=== PATIENT | male | born 1940 | race Caucasian/White ===

== ENCOUNTER 2016-12-15 03:43 | Emergency (ER) | payer MEDICARE, OTHER ==
[~2016-12-15 03:43] MED LIST: DETR4CAP PO; FINA5TAB2 PO; TAMS0.4C4 PO; TEMA15CA PO
== END 2016-12-15 07:15 | disposition left against medical advice (07) ==
LOC: PHED 03:43
DX: Z53.9 Procedure and treatment not carried out, unspecified reason (principal)
CPT/HCPCS: 99281

== ENCOUNTER 2017-01-26 10:35 | Inpatient (IN) | payer MEDICARE, OTHER ==
[2017-01-26] VITALS (8 sets, daily range): BP systolic 94–149; BP diastolic 53–70; PULSE 54–122; RESP 15–23; TEMP 97.8–98.7; O2SAT 93–98
--- NOTE | 2017-01-26 10:58 | PD ---
HPI Chief Complaint: Cardiac Complaint Time Seen by Provider: 10:51 Travel History International Travel<30 days: No Contact w/Intl Traveler<30days: No Traveled to known affect area: No History of Present Illness HPI [place] C/O PALPITATIONS ONGOING SINCE WHEN HE PASSED OUT. NOW OVER LAST 2 DAYS, HE HAS HAD PALPITATIONS, INTERMITTENTLY ONGOING BUT NOT RESOLVING OVER PAST COUPLE DAYS, DENIES CP/SMITH/ABDPAIN/ DENIES BLEEDING/FEVER AT THIS TIME...NO ALLEVIATING FACTOR....AGGRAVATED BY EXERCISE. ON NO ANTICOAGULANTS CHART AND RN NOTES REVIEWED PCP: CHELSEA PMHX: HYPERLIPIDEMIA, BPH, LYMPHOMA...ALSO H/O ANEURYSM BRAIN BLEED S/P CLIPPING PSHX: HERNIA REPAIR KRISTOPHER, MELANOMA REMOVAL FROM CHEST, KNEE REPLACED KRISTOPHER PFSH Past Medical History Cancer: Yes (SKIN) Cardiovascular Problems: No Diabetes: No Endocrine: No Genitourinary: Yes (BPH) Hepatitis: No Hiatal Hernia: No Immune Disorder: No Musculoskeletal: No Neurologic: Yes (CEREBRAL BLEEED) Psychiatric: No Respiratory: No Immunizations Current: Yes Thyroid Disease: No Past Surgical History Eye Surgery: Yes (CATARCT SX BILAT) Genitourinary Surgery: Yes (BILAT HERNIA REPAIR) Joint Replacement: Yes (RIGHT KNEE) Oral Surgery: Yes (TONSILLECTOMY) Social History Tobacco Use: Yes Substance Use: No Allergies-Medications (Allergen,Severity, Reaction): Coded Allergies: *MDRO Multi-Drug Resistant Organism (Verified Adverse Reaction, Unknown, ) 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 Review of Systems Except as stated in HPI: all other systems reviewed are Neg General / Constitutional: No: Fever Eyes: No: Visual changes HENT: No: Headaches Cardiovascular: Positive: Palpitations Respiratory: No: Shortness of Breath Gastrointestinal: No: Abdominal Pain Genitourinary: No: Dysuria Musculoskeletal: No: Pain Skin: No Rash Neurologic: No: Weakness Psychiatric: No: Depression Endocrine: No: Polydipsia Hematologic/Lymphatic: No: Easy Bruising Physical Exam Narrative GENERAL: SKIN: Warm and dry. HEAD: Atraumatic. Normocephalic. EYES: Pupils equal and round. No scleral icterus. No injection or drainage. ENT: No nasal bleeding or discharge. Mucous membranes pink and moist. NECK: Trachea midline. No JVD. CARDIOVASCULAR: IRREGULARLY IRREGULAR RHYTHM, TACHY RATE RESPIRATORY: No accessory muscle use. Clear to auscultation. Breath sounds equal bilaterally. GASTROINTESTINAL: Abdomen soft, non-tender, nondistended. MUSCULOSKELETAL: Extremities without clubbing, cyanosis, or edema. No obvious deformities. NEUROLOGICAL: Awake and alert. No obvious cranial nerve deficits. Motor grossly within normal limits. Five out of 5 muscle strength in the arms and legs. Normal speech. PSYCHIATRIC: Appropriate mood and affect; insight and judgment normal. Data Data Last Documented VS Vital Signs Date Time Temp Pulse Resp B/P (MAP) Pulse Ox O2 Delivery O2 Flow Rate FiO2 01/26/17 13:16 85 18 108/65 (79) 96 Room Air 01/26/17 10:38 98.4 Orders Orders Electrocardiogram (01/26/17 10:51) B-Type Natriuretic Peptide (01/26/17 10:51) Ckmb (Isoenzyme) Profile (01/26/17 10:51) Complete Blood Count With Diff (01/26/17 10:51) Comprehensive Metabolic Panel (01/26/17 10:51) Prothrombin Time / Inr (Pt) (01/26/17 10:51) Act Partial Throm Time (Ptt) (01/26/17 10:51) Troponin I (01/26/17 10:51) Chest, Single Ap (01/26/17 10:51) Ecg Monitoring (01/26/17 10:51) Bilateral Bp Monitoring (01/26/17 10:51) Iv Access Insert/Monitor (01/26/17 10:51) Oximetry (01/26/17 10:51) Oxygen Administration (01/26/17 10:51) Sodium Chloride 0.9% Flush (Ns Flush) (01/26/17 11:00) Diltiazem Inj (Cardizem Inj) (01/26/17 11:30) Electrocardiogram (01/26/17 11:38) Sodium Chlor 0.9% 1000 Ml Inj (Ns 1000 M (01/26/17 12:30) Diltiazem Inj (Cardizem Inj) (01/26/17 13:15) Admit Order (Ed Use Only) (01/26/17 14:22) Preparation Center Coordinator / Telemetry [id number] (01/26/17 14:22) Diet Heart Healthy (01/26/17 Dinner) Activity Bed Rest (01/26/17 14:22) Notify Dr: Other (01/26/17 14:22) Labs Laboratory Tests Test 01/26/17 11:10 White Blood Count 4.7 TH/MM3 Red Blood Count 4.44 MIL/MM3 Hemoglobin 15.2 GM/DL Hematocrit 44.4 % Mean Corpuscular Volume 100.0 FL Mean Corpuscular Hemoglobin 34.3 PG Mean Corpuscular Hemoglobin Concent 34.3 % Red Cell Distribution Width 13.1 % Platelet Count 132 TH/MM3 Mean Platelet Volume 7.5 FL Neutrophils (%) (Auto) 51.9 % Lymphocytes (%) (Auto) 31.9 % Monocytes (%) (Auto) 13.9 % Eosinophils (%) (Auto) 1.5 % Basophils (%) (Auto) 0.8 % Neutrophils # (Auto) 2.4 TH/MM3 Lymphocytes # (Auto) 1.5 TH/MM3 Monocytes # (Auto) 0.7 TH/MM3 Eosinophils # (Auto) 0.1 TH/MM3 Basophils # (Auto) 0.0 TH/MM3 CBC Comment DIFF FINAL Differential Comment Prothrombin Time 10.5 SEC Prothromb Time International Ratio 1.0 RATIO Activated Partial Thromboplast Time 23.1 SEC Blood Urea Nitrogen 22 MG/DL Creatinine 0.85 MG/DL Random Glucose 110 MG/DL Total Protein 6.9 GM/DL Albumin 3.7 GM/DL Calcium Level 8.7 MG/DL Alkaline Phosphatase 70 U/L Aspartate Amino Transf (AST/SGOT) 20 U/L Alanine Aminotransferase (ALT/SGPT) 23 U/L Total Bilirubin 0.5 MG/DL Sodium Level 142 MEQ/L Potassium Level 4.2 MEQ/L Chloride Level 108 MEQ/L Carbon Dioxide Level 26.4 MEQ/L Anion Gap 8 MEQ/L Estimat Glomerular Filtration Rate 88 ML/MIN Total Creatine Kinase 88 U/L Troponin I LESS THAN 0.02 NG/ML B-Type Natriuretic Peptide 86 PG/ML MDM Medical Decision Making Medical Screen Exam Complete: Yes Emergency Medical Condition: Yes Medical Record Reviewed: Yes Interpretation(s) AFLUTTER/AFIB, MILDLY TACHY,. RBBB, Differential Diagnosis PALPITATIONS V ANEMIA V PULM EDEMA V PNA V WV V NONSTEMI Narrative Course PATIENT FIRST SET OF TROPONIN NEGATIVE, HOWEVER, PATIENT BECAME SLIGHTLY HYPOTENSIVE SBP IN 90'S AND RESPONDED WELL TO IVF CHALLENGE, BY INCREASING SBP AND DECREASING RATE...HOWEVER, RATE WAS NOW STILL IN AFIB. NOT ANTICOAGULATED AND MAKING THIS DECISION MORE DIFFICULT IS THE FACT THAT PATIENT HAD BRAIN BLEED FROM BRAIN ANEURYSM A FEW YEARS AGO. Diagnosis Primary Impression: New onset a-fib Admitting Information Admitting Physician Requests: Observation Scripts Apixaban (Eliquis) 5 Mg Tab 5 MG PO BID for Blood Clot Prevention, #60 TAB 3 Refills Prov: Qamar Heart DO 01/27/17 Metoprolol Tartrate (Metoprolol Tartrate) 25 Mg Tab 12.5 MG PO Q12HR for Afib, #60 TAB 5 Refills Prov: Qamar Heart DO 01/27/17 William Esquivel MD Jan 26, 2017 10:58
[2017-01-26] MEDS ORDERED: SODIUM CHLORIDE 0.9% FLUSH 10 ML FLUSH IVF PRN (11:00)
[2017-01-26] MEDS ORDERED: DILTIAZEM HCL 25 MG/5 ML VIAL IV ONE ×2 (11:30→13:15)
[2017-01-26 11:45] LABS: AUTOMATED NEUTROPHIL # 2.4 TH/MM3 (1.8-7.7); BASOPHIL % 0.8 % (0.0-2.0); EOSINOPHIL # 0.1 TH/MM3 (0-0.4); EOSINOPHIL % 1.5 % (0.0-4.0); HEMATOCRIT 44.4 % (39.0-51.0); HEMO FLAGS DIFF FINAL; LYMPH % 31.9 % (9.0-44.0); LYMPHOCYTE # 1.5 TH/MM3 (1.0-4.8); MEAN CORPUSCULAR HEMOGLOBIN 34.3 PG (27.0-34.0); MEAN CORPUSCULAR HGB CONC 34.3 % (32.0-36.0); MONO % 13.9 % (0.0-8.0); NEUT % 51.9 % (16.0-70.0); PLATELET COUNT 132 TH/MM3 (150-450); RED BLOOD COUNT 4.44 MIL/MM3 (4.50-5.90); RED CELL DISTRIBUTION WIDTH 13.1 % (11.6-17.2); WHITE BLOOD COUNT 4.7 TH/MM3 (4.0-11.0)
[2017-01-26 11:55] LABS: APTT (PATIENT) 23.1 SEC (24.3-30.1); PROTHROMBIN TIME - PATIENT 10.5 SEC (9.8-11.6)
--- NOTE | 2017-01-26 12:05 | RADRPT ---
EXAM DATE/TIME: 01/26/2017 11:28 [facility] COMPARISON: No previous studies available for comparison. INDICATIONS : Irregular heartbeat MEDICAL HISTORY : lymphoma, benign prostatic hypertrophy SURGICAL HISTORY : hernia repair ENCOUNTER: Initial ACUITY: 1 day PAIN SCORE: 0/10 LOCATION: Bilateral chest FINDINGS: Koiier-x-Ausf catheter tip at the cavoatrial junction. There is a patchy areas of opacity at the lef t lung base without obscuration of the left hemidiaphragm. The right lung is clear. No evidence of pneumothorax. The heart is upper limits normal size. CONCLUSION: Mild patchy infiltrates at the left lung base. Marc Delcid MD on January 26, 2017 at 12:03 Board Certified Radiologist. This report was verified electronically.
[2017-01-26 12:15] LABS: ALT (GPT) 23 U/L (12-78)
[2017-01-26 12:17] LABS: ANION GAP 8 MEQ/L (5-15); AST (GOT) 20 U/L (15-37); BICARBONATE 26.4 MEQ/L (21.0-32.0); BLOOD UREA NITROGEN 22 MG/DL (7-18); CHLORIDE 108 MEQ/L (98-107); GLOMERULAR FILTRATION RATE 88 ML/MIN (>89); SODIUM (NA) 142 MEQ/L (136-145)
[2017-01-26 12:18] LABS: POTASSIUM 4.2 MEQ/L (3.5-5.1)
[2017-01-26 12:19] LABS: ALKALINE PHOSPHATASE 70 U/L (45-117); CREATINE KINASE 88 U/L (39-308); TOTAL BILIRUBIN ADULT 0.5 MG/DL (0.2-1.0)
[2017-01-26] MEDS ORDERED: SODIUM CHLOR 0.9% 1000 ML INJ 1,000 ML IV ONE (12:30)
[2017-01-26] MEDS ORDERED: SODIUM CHLORIDE 0.9% FLUSH 10 ML FLUSH IV FLUSH PRN (14:30)
[2017-01-26] MEDS ORDERED: LACTULOSE SYRUP 20 GM/30 ML CUP PO PRN (14:30)
[2017-01-26] MEDS ORDERED: ACETAMINOPHEN 325 MG TAB PO PRN (14:30)
[2017-01-26] MEDS ORDERED: MAGNESIUM HYDROXIDE SUSP 30 ML CUP PO PRN (14:30)
[2017-01-26] MEDS ORDERED: SENNOSIDES 8.6 MG TAB PO PRN (14:30)
[2017-01-26] MEDS ORDERED: ONDANSETRON HCL 4 MG/2 ML VIAL IVP PRN (14:30)
[2017-01-26] MEDS ORDERED: BISACODYL 10 MG SUPP RECTAL PRN (14:30)
[2017-01-26] MEDS ORDERED: NALOXONE HCL 0.4 MG/ML AMP IV PUSH PRN (14:30)
[2017-01-26] MEDS ORDERED: IBRU1CAP PO (14:51)
--- NOTE | 2017-01-26 17:29 | HHI.HP ---
HPI Service [facility] Primary Care Physician Marc Sykes MD Admission Diagnosis NEW ONSET AFIB Diagnoses: Chief Complaint: Palpitations. Travel History International Travel<30 Days: No Contact w/Intl Traveler <30 Da: No Traveled to Known Affected Are: No History of Present Illness Mr. Vega is a pleasant 76-year-old with a history of Non-Hodgkin's lymphoma, melanoma who presents to the emergency department due to palpitations. Around labor day of this year, patient was outside and felt dizzy , lightheaded but was able to come home. Since that day, he has experienced palpitations. However, no chest pain, shortness of breath. No further near syncope, dizziness, lightheadedness. He knew his heart rhythm is irregular. Today, [facility] who advised patient to report to the hospital due to Afib with RVR. He was given diltiazem 5mg and 10mg IV. At the time of this interview, patient denies any chest pain, shortness of breath. No changes in bowel or bladder habits. He is sitting in his chair. Review of Systems Except as stated in HPI: all other systems reviewed are Neg Past Family Social History Past Medical History Melanoma, BPH, cerebral bleed, Non-Hodgkin's lymphoma. Past Surgical History Bilateral cataract surgery, bilateral hernia repair, two knee replacement, tonsillectomy Reported Medications Tamsulosin (Tamsulosin HCl) 0.4 Mg Cap 0.4 Mg PO HS Detrol LA (Tolterodine Tartrate) 4 Mg Cap 4 Mg PO DAILY Temazepam 15 Mg Cap 15 Mg PO HS PRN Finasteride 5 Mg Tab 5 Mg PO DAILY Do not crush. 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 Mother - Alzheimer's. Social History Does not use tobacco, alcohol or illicit drugs. Physical Exam Vital Signs Vital Signs Date Time Temp Pulse Resp B/P (MAP) Pulse Ox O2 Delivery O2 Flow Rate FiO2 01/26/17 14:45 96 19 125/61 (82) 96 Room Air 01/26/17 13:16 85 18 108/65 (79) 96 Room Air 01/26/17 11:44 122 23 94/53 (67) 96 Room Air 01/26/17 11:00 115 01/26/17 10:38 98.4 88 15 149/69 (95) 95 Physical Exam GENERAL: This is a well-nourished, well-developed patient, in no apparent distress. SKIN: No rashes, ecchymoses or lesions. Warm and dry. HEAD: Atraumatic. Normocephalic. No temporal or scalp tenderness. EYES: Pupils equal round and reactive. No injection or drainage. ENT: Nose without bleeding, purulent drainage or septal hematoma. Airway patent. NECK: Trachea midline. No lymphadenopathy. Supple, nontender, no meningeal signs. CARDIOVASCULAR: Irregularly irregular without murmurs, gallops, or rubs. No JVD. RESPIRATORY: Clear to auscultation. Breath sounds equal bilaterally. No wheezes , rales, or rhonchi. GASTROINTESTINAL: Abdomen soft, non-tender, nondistended. No guarding. MUSCULOSKELETAL: Extremities without clubbing, cyanosis, or edema. NEUROLOGICAL: Awake and alert. Cranial nerves II through XII intact. No focal neurological deficits. Normal speech. Laboratory Laboratory Tests Test 01/26/17 11:10 White Blood Count 4.7 Red Blood Count 4.44 Hemoglobin 15.2 Hematocrit 44.4 Mean Corpuscular Volume 100.0 Mean Corpuscular Hemoglobin 34.3 Mean Corpuscular Hemoglobin Concent 34.3 Red Cell Distribution Width 13.1 Platelet Count 132 Mean Platelet Volume 7.5 Neutrophils (%) (Auto) 51.9 Lymphocytes (%) (Auto) 31.9 Monocytes (%) (Auto) 13.9 Eosinophils (%) (Auto) 1.5 Basophils (%) (Auto) 0.8 Neutrophils # (Auto) 2.4 Lymphocytes # (Auto) 1.5 Monocytes # (Auto) 0.7 Eosinophils # (Auto) 0.1 Basophils # (Auto) 0.0 CBC Comment DIFF FINAL Differential Comment Prothrombin Time 10.5 Prothromb Time International Ratio 1.0 Activated Partial Thromboplast Time 23.1 Blood Urea Nitrogen 22 Creatinine 0.85 Random Glucose 110 Total Protein 6.9 Albumin 3.7 Calcium Level 8.7 Alkaline Phosphatase 70 Aspartate Amino Transf (AST/SGOT) 20 Alanine Aminotransferase (ALT/SGPT) 23 Total Bilirubin 0.5 Sodium Level 142 Potassium Level 4.2 Chloride Level 108 Carbon Dioxide Level 26.4 Anion Gap 8 Estimat Glomerular Filtration Rate 88 Total Creatine Kinase 88 Troponin I LESS THAN 0.02 B-Type Natriuretic Peptide 86 Result Diagram: 01/26/17 1110 01/26/17 1110 Imaging Last Impressions Chest X-Ray 01/26/17 1051 Signed Impressions: Service Date/Time: Thursday, January 26, 2017 11:28 - CONCLUSION: Mild patchy infiltrates at the left lung base. MD Trae Mcneal VTE Risk Assessment Caprini VTE Risk Assessment: Mod/High Risk (score >= 2) Caprini Risk Assessment Model Point Value = 1 Point Value = 2 Point Value = 3 Point Value = 5 Age 41-60 Minor surgery BMI > 25 kg/m2 Swollen legs Varicose veins or History of unexplained or recurrent spontaneous Oral contraceptives or hormone replacement Sepsis (< 1 month) Serious lung disease, including pneumonia (< 1 month) Abnormal pulmonary function Acute myocardial infarction Congestive heart failure (< 1 month) History of inflammatory bowel disease Medical patient at bed rest Age 61-74 Arthroscopic surgery Major open surgery (> 45 min) Laparoscopic surgery (> 45 min) Malignancy Confined to bed (> 72 hours) Immobilizing plaster cast Central venous access Age >= 75 History of VTE Family history of VTE Factor V Leiden Prothrombin [id number] Lupus anticoagulant Anticardiolipin antibodies Elevated serum homocysteine Heparin-induced thrombocytopenia Other congenital or acquired thrombophilia Stroke (< 1 month) Elective arthroplasty Hip, pelvis, or leg fracture Acute spinal cord injury (< 1 month) Prophylaxis Regimen Total Risk Factor Score Risk Level Prophylaxis Regimen 0-1 Low Early ambulation 2 Moderate Order ONE of the following: *Sequential Compression Device (SCD) *Heparin 5000 units SQ BID 3-4 Higher Order ONE of the following medications: *Heparin 5000 units SQ TID *Enoxaparin/Lovenox 40 mg SQ daily (WT < 150 kg, CrCl > 30 mL/min) *Enoxaparin/Lovenox 30 mg SQ daily (WT < 150 kg, CrCl > 10-29 mL/min) *Enoxaparin/Lovenox 30 mg SQ BID (WT < 150 kg, CrCl > 30 mL/min) AND/OR *Sequential Compression Device (SCD) 5 or more Highest Order ONE of the following medications: *Heparin 5000 units SQ TID (Preferred with Epidurals) *Enoxaparin/Lovenox 40 mg SQ daily (WT < 150 kg, CrCl > 30 mL/min) *Enoxaparin/Lovenox 30 mg SQ daily (WT < 150 kg, CrCl > 10-29 mL/min) *Enoxaparin/Lovenox 30 mg SQ BID (WT < 150 kg, CrCl > 30 mL/min) AND *Sequential Compression Device (SCD) Assessment and Plan Problem List: (1) Atrial fibrillation with RVR ICD Code: I48.91 - Unspecified atrial fibrillation (2) Hyperlipidemia ICD Code: E78.5 - Hyperlipidemia Status: Chronic (3) Hx of non-Hodgkin's lymphoma ICD Code: Z85.72 - Personal history of non-Hodgkin lymphomas Assessment and Plan Mr. Vega is a pleasant 76 year old who presents to the ED after his PCP advised him to come to the hospital due to Afib with RVR. Patient has been experiencing irregular heart beat since 2016. However, he has not been evaluated by any provider and thus has been on any medication for rate control or anti-coagulation. - Atrial fibrillation with RVR - [id number] score 2 (age > 74). - Will start patient on Metoprolol 50mg BID. May consider reducing dose if heart rate drops too much. - If beta carolyn is not effective, will consider CCB. - His Afib has been present at least since . No current need for cardioversion. - Will start patient on Apixaban 5mg BID for anti-coagulation. - We discussed at length about treatment approach, rate control, anti- coagulation. - Patient is advised to see a keno dealer in the outpatient setting. - Despite rate control, if he remains symptomatic, he may benefit from cardioversion/ablation in future. - History of Non-hodgkin's lymphoma - Patient is on Ibrutinib. Oncologist is Dr. Micheal Vázquez. - Resume Ibrutinib upon discharge. Full code. Apixaban. Discharge plan: If rate is well controlled, patient can go home on 01/27/2017 and follow up with cardiology in the outpatient setting. Qamar Heart DO Jan 26, 2017 17:29
[2017-01-26] MEDS ORDERED: METOPROLOL TARTRATE 50 MG TAB PO ONE (19:30)
[2017-01-26] MEDS: SODIUM CHLORIDE 0.9% FLUSH 10 ML FLUSH IV FLUSH SCH (21:00)
--- NOTE | 2017-01-26 22:07 | EKG ---
Date Performed: 01/26/2017 Time Performed: 13:29:29 PTAGE: 76 years EKG: ATRIAL FIBRILLATION RIGHT BUNDLE BRANCH BLOCK LEFT POSTERIOR FASCICULAR BLOCK ABNORMAL ECG NO PREVIOUS TRACING DOCTOR: Matthieu Lucero Interpretating Date/Time 01/26/2017 22:05:31
[2017-01-26] MEDS: APIXABAN 5 MG TABLET PO SCH (22:35)
[2017-01-26] MEDS ORDERED: TEMAZEPAM 7.5 MG CAP PO ONE (23:45)
[2017-01-26] MEDS ORDERED: TEMAZEPAM 15 MG CAP PO PRN (23:45)
[2017-01-27 03:55] VITALS: BP 98/53; PULSE 56; RESP 18; TEMP 98.6; O2SAT 93
[2017-01-27 07:24] VITALS: BP 97/53; PULSE 54; RESP 16; TEMP 97.9; O2SAT 95
[2017-01-27 08:00] VITALS: PULSE 51; PULSE 57
--- NOTE | 2017-01-27 08:05 | EKG ---
Date Performed: 01/26/2017 Time Performed: 11:02:36 PTAGE: 76 years EKG: ATRIAL FIBRILLATION WITH RAPID VENTRICULAR RESPONSE MARKED RIGHT AXIS DEVIATION RIGHT BUNDL E BRANCH BLOCK ABNORMAL ECG Compared to PREVIOUS TRACING , atrial fibrillation with RVR is new. PREVIOUS TRACIN06/01/2013 16.5 3 DOCTOR: Rob Quinonez Interpretating Date/Time 01/27/2017 08:03:47
--- NOTE | 2017-01-27 08:07 | EKG ---
Date Performed: 01/26/2017 Time Performed: 11:38:21 PTAGE: 76 years EKG: ATRIAL FIBRILLATION WITH RAPID VENTRICULAR RESPONSE BORDERLINE RIGHT AXIS DEVIATION INTRAVE NTRICULAR CONDUCTION DELAY ST ELEVATION, CONSIDER INFERIOR INJURY ACUTE VT NO PREVIOUS TRACING DOCTOR: Rob Quinonez Interpretating Date/Time 01/27/2017 08:05:34
[2017-01-27 08:08] VITALS: O2SAT 97
[2017-01-27 08:21] LABS: AUTOMATED NEUTROPHIL # 2.3 TH/MM3 (1.8-7.7); BASOPHIL % 0.8 % (0.0-2.0); EOSINOPHIL # 0.1 TH/MM3 (0-0.4); EOSINOPHIL % 1.7 % (0.0-4.0); HEMATOCRIT 41.9 % (39.0-51.0); HEMO FLAGS DIFF FINAL; LYMPH % 37.6 % (9.0-44.0); LYMPHOCYTE # 1.9 TH/MM3 (1.0-4.8); MEAN CELL VOLUME 100.6 FL (80.0-100.0); MEAN CORPUSCULAR HEMOGLOBIN 34.6 PG (27.0-34.0); MEAN CORPUSCULAR HGB CONC 34.4 % (32.0-36.0); MONO % 13.8 % (0.0-8.0); NEUT % 46.1 % (16.0-70.0); PLATELET COUNT 129 TH/MM3 (150-450); RED BLOOD COUNT 4.17 MIL/MM3 (4.50-5.90); RED CELL DISTRIBUTION WIDTH 13.1 % (11.6-17.2); WHITE BLOOD COUNT 5.1 TH/MM3 (4.0-11.0)
[2017-01-27 08:54] LABS: BICARBONATE 29.1 MEQ/L (21.0-32.0)
[2017-01-27] MEDS ORDERED: METOPROLOL TARTRATE 50 MG TAB PO SCH ×2 (09:00)
[2017-01-27] MEDS: SODIUM CHLORIDE 0.9% FLUSH 10 ML FLUSH IV FLUSH SCH (09:00)
[2017-01-27] MEDS ORDERED: METOPROLOL TARTRATE 25 MG TAB PO SCH (09:00)
[2017-01-27] MEDS ORDERED: FINASTERIDE 5 MG TAB PO SCH (09:00)
[2017-01-27] MEDS ORDERED: PILL SPLITTER OTHER PRN (09:15)
[2017-01-27] MEDS: INFLUENZA VIRUS VACCINE (QUADRIVALENT) 0.5 ML SYR IM ONE ×2 (10:00→10:12)
[2017-01-27] MEDS ORDERED: PNEUMOCOCCAL POLYVALENT INJ 25 MCG/0.5 ML SYR IM ONE (10:00)
[2017-01-27] MEDS: APIXABAN 5 MG TABLET PO SCH (10:03)
[2017-01-27] MEDS ORDERED: APIX5TAB PO (10:56)
[2017-01-27] MEDS ORDERED: METO25TA3 PO (10:56)
--- NOTE | 2017-01-27 11:00 | HHI.PR ---
Subjective Remarks Follow up for Afib. Patient is doing well. No chest pain, palpitations. Heart rate is well controlled. Objective Vitals Vital Signs Date Time Temp Pulse Resp B/P (MAP) Pulse Ox O2 Delivery O2 Flow Rate FiO2 01/27/17 08:08 97 21 01/27/17 07:24 97.9 54 16 97/53 (68) 95 01/27/17 03:55 98.6 56 18 98/53 (68) 93 01/26/17 23:14 97.8 54 18 102/55 (71) 93 01/26/17 19:53 98.7 79 18 118/69 (85) 94 01/26/17 19:30 94 01/26/17 17:57 01/26/17 17:55 97 18 120/70 (87) 98 Room Air 01/26/17 14:45 96 19 125/61 (82) 96 Room Air 01/26/17 13:16 85 18 108/65 (79) 96 Room Air 01/26/17 11:44 122 23 94/53 (67) 96 Room Air 01/26/17 11:00 115 I/O 01/26/17 01/26/17 01/26/17 01/27/17 01/27/17 01/27/17 07:00 15:00 23:00 07:00 15:00 23:00 Intake Total 1000 ml 300 ml Balance 1000 ml 300 ml Intake Oral 300 ml IV Total 1000 ml Result Diagram: 01/27/17 0655 01/27/17 0655 Imaging Last Impressions Chest X-Ray 01/26/17 1051 Signed Impressions: Service Date/Time: Thursday, January 26, 2017 11:28 - CONCLUSION: Mild patchy infiltrates at the left lung base. Marc Delcid MD Objective Remarks GENERAL: SKIN: Warm and dry. HEAD: Normocephalic. EYES: No scleral icterus. No injection or drainage. NECK: Supple, trachea midline. No JVD or lymphadenopathy. CARDIOVASCULAR: Regular rate and rhythm without murmurs, gallops, or rubs. RESPIRATORY: Breath sounds equal bilaterally. No accessory muscle use. GASTROINTESTINAL: Abdomen soft, non-tender, nondistended. MUSCULOSKELETAL: No cyanosis, or edema. BACK: Nontender without obvious deformity. No CVA tenderness. Procedures None A/P Problem List: (1) Atrial fibrillation with RVR ICD Code: I48.91 - Unspecified atrial fibrillation (2) Hyperlipidemia ICD Code: E78.5 - Hyperlipidemia Status: Chronic (3) Hx of non-Hodgkin's lymphoma ICD Code: Z85.72 - Personal history of non-Hodgkin lymphomas Assessment and Plan Mr. Vega is a pleasant 76 year old who presents to the ED after his PCP advised him to come to the hospital due to Afib with RVR. Patient has been experiencing irregular heart beat since 2016. However, he has not been evaluated by any provider and thus has been on any medication for rate control or anti-coagulation. - Atrial fibrillation with RVR - [id number] score 2 (age > 74). - Continue Metoprolol 12.5mg BID. - Continue Apixaban 5mg BID for anti-coagulation. - Outpatient cardiology follow up. - History of Non-hodgkin's lymphoma - Patient is on Ibrutinib. Oncologist is Dr. Micheal Vázquez. - Resume Ibrutinib upon discharge. Full code. Apixaban. Discharge patient to home Condition on discharge: Improved Heart healthy Diet as tolerated Ad Agnieszka activity Rx written: Metoprolol 12.5mg BID (Hold for heart rate < 55). Apixaban 5mg BID. Follow-up with primary care physician within two weeks and Cardiology ([facility]) within two weeks. Patient is advised to see cardiology or come to the hospital, IF he has symptoms including chest pain, dizziness, lightheadedness. Qamar Heart DO Jan 27, 2017 11:00
[2017-01-27 11:44] VITALS: BP 110/51; PULSE 53; RESP 16; TEMP 97.8; O2SAT 95
== END 2017-01-27 14:47 | disposition home or self-care (01) | DRG 310 ==
LOC: NEPE 10:35 → NEDA 14:23 → NEPGCP 19:20
PROVIDERS: ADMIT Hospitalist; ATTEND Hospitalist
DX: I48.91 Unspecified atrial fibrillation (principal); E78.5 Hyperlipidemia, unspecified; N40.0 Benign prostatic hyperplasia without lower urinary tract symptoms; Z85.72 Personal history of non-Hodgkin lymphomas; Z85.820 Personal history of malignant melanoma of skin; Z96.653 Presence of artificial knee joint, bilateral; Z72.0 Tobacco use; Z86.14 Personal history of Methicillin resistant Staphylococcus aureus infection
CPT/HCPCS: 71010; 80048; 80053; 82550; 83880; 84484; 85025; 85610; 85730; 90686; 93005; J7030; Q2038

== ENCOUNTER 2017-03-05 06:30 | Day surgery (SDC) | payer MEDICARE, OTHER ==
[~2017-03-05] VITALS: Ht 188 cm; Wt 86.4 kg
[~2017-03-05 06:30] MED LIST changes: +APIX5TAB PO; +IBRU1CAP PO; +METO25TA3 PO; -TAMS0.4C4 PO
[2017-03-05 06:51] VITALS: BP 102/55; PULSE 50; RESP 20; TEMP 97.5; O2SAT 95
[2017-03-05] MEDS ORDERED: REST15CA PO (07:11)
[2017-03-05] MEDS ORDERED: ASPI81CH6 CHEW (07:11)
[2017-03-05] MEDS ORDERED: SODIUM CHLOR 0.9% 1000 ML IV SCH (07:15)
[2017-03-05] MEDS ORDERED: SODIUM CHLORIDE 2 ML FLUSH PRN IV FLUSH (07:15)
[2017-03-05 07:44] LABS: AUTOMATED NEUTROPHIL # 2.3 TH/MM3 (1.8-7.7); BASOPHIL % 0.8 % (0.0-2.0); EOSINOPHIL # 0.2 TH/MM3 (0-0.4); EOSINOPHIL % 4.9 % (0.0-4.0); HEMATOCRIT 42.7 % (39.0-51.0); HEMO FLAGS DIFF FINAL; LYMPH % 23.6 % (9.0-44.0); LYMPHOCYTE # 0.9 TH/MM3 (1.0-4.8); MEAN CELL VOLUME 99.2 FL (80.0-100.0); MEAN CORPUSCULAR HEMOGLOBIN 33.7 PG (27.0-34.0); MONO % 13.5 % (0.0-8.0); NEUT % 57.2 % (16.0-70.0); PLATELET COUNT 118 TH/MM3 (150-450); RED CELL DISTRIBUTION WIDTH 12.7 % (11.6-17.2); WHITE BLOOD COUNT 3.9 TH/MM3 (4.0-11.0)
[2017-03-05] MEDS ORDERED: LIDOCAINE 1%/EPINEPHrine 1:100,000 SOLN 20 ML VIAL ONE (08:13)
[2017-03-05] MEDS ORDERED: MIDAZOLAM HCL 2 MG/2 ML VIAL ONE (08:21)
[2017-03-05] MEDS ORDERED: SODIUM CHLORIDE 2 ML FLUSH BID IV FLUSH SCH (09:00)
--- NOTE | 2017-03-05 09:05 | PD.RAD ---
Post CT Procedure Prog Note Pre Procedure Diagnosis: (1) Lymphoma Post Procedure Diagnosis: (1) Lymphoma Procedure Date: Mar 05, 2017 Supervising Radiologist: Marc Zepeda JR Anesthesia: Conscious Sedation Plan of Activity Patient to Unit: ROPU Patient Condition: Good See PACS Report for procedural detail/treatment Biopsy Imaging Guidance: CT Side: Left Biopsy Procedure: Bone Marrow Specimen: Core Biopsy Findings: Successful BM biopsy and aspiration. Pt tolerated well. Jr. Duane,Marc Wadsworth MD Mar 05, 2017 09:05
[2017-03-05 09:15] VITALS: BP 111/56; PULSE 53; RESP 20; TEMP 97.7; O2SAT 94
[2017-03-05 09:30] VITALS: BP 125/58; PULSE 69; RESP 18; O2SAT 99
--- NOTE | 2017-03-05 09:54 | RADRPT ---
EXAM DATE/TIME: 03/05/2017 08:42 [facility] COMPARISON: CT NEEDLE BIOPSY BONE MARROW, November 21, 2015, 9:05. INDICATIONS : Lymphoma. SEDATION TIME: 30 minutes BIOPSY SITE: Left iliac MEDICATION(S): 1.) 2 mg midazolam (Versed) IV 2.) 100 mcg fentanyl (Sublimaze) IV DEVICE(S): 1.) 11 gauge Bone marrow biopsy needle MEDICAL HISTORY : Lymphoma. Anant cell carcinoma SURGICAL HISTORY : None. ENCOUNTER: Initial ACUITY: 1 day PAIN SCORE: 0/10 LOCATION: Left pelvis A total of one core specimen(s) were obtained and sent to the laboratory for pathologic evaluation. PROCEDURE: 1. CT guided bone marrow biopsy. 2. Conscious sedation with continuous EKG and oximetry monitoring. Prior to the procedure informed consent was obtained. Any appropriate prior imaging studies were rev iewed. Using automated exposure control and adjustment of the mA and/or kV according to patient size , radiation dose was kept as low as reasonably achievable to obtain optimal diagnostic quality images . DICOM format image data is available electronically for review and comparison. The site was prepped in a sterile fashion. Full sterile technique was used, including cap, mask, enzo rile gloves and gown and a large sterile sheet. Hand hygiene and 2% chlorhexidine and/or betadine/al cohol prep was utilized per protocol for cutaneous antisepsis. The skin and subcutaneous tissues wer e infiltrated with local anesthetic solution. With CT guidance the previously identified target was localized. Biopsy was performed using the presc ribed needle as above. Following biopsy marrow aspiration was performed with repeat puncture. Adequa te hemostasis was obtained with compression at the puncture site. Follow-up CT scan reveals no hemorrhage. Conscious sedation was performed with the prescribed dosages and duration as above in the presence of an independent trained radiology nurse to assist in the monitoring of the patient. EKG and oximetry remained stable throughout the procedure. The patient tolerated the procedure well and there were no complications. The patient was sent to Radiology Outpatient Unit in stable condition. CONCLUSION: 1. Uncomplicated CT guided bone marrow aspirate. 2. Uncomplicated CT guided bone marrow biopsy. Marc Zepeda Jr., MD on March 05, 2017 at 9:51 Board Certified Radiologist. This report was verified electronically.
[2017-03-05 10:00] VITALS: BP 135/74; PULSE 66; RESP 16; O2SAT 95
[2017-03-05 10:30] VITALS: BP 117/58; PULSE 65; RESP 18; O2SAT 94
[2017-03-05 11:00] VITALS: BP 121/62; PULSE 70; RESP 18; O2SAT 95
[2017-03-05 12:12] LABS: BONE MARROW PROCESSING COMPLETE; IRON STAIN DONE; JENNER GIEMSA STAIN DONE
== END 2017-03-05 11:25 | disposition home or self-care (01) ==
LOC: HRIP 06:30 → HRAD 06:30
PROVIDERS: ATTEND Internal Medicine Hematology & Oncology
DX: C91.10 Chronic lymphocytic leukemia of B-cell type not having achieved remission (principal); D69.6 Thrombocytopenia, unspecified; M85.80 Other specified disorders of bone density and structure, unspecified site
CPT/HCPCS: 38221; 77012; 85025; 85097; 88184; 88185; 88237; 88264; 88280; 88305; 88311; 88313; 99152; 99153; C1830; G0364; J2250; J3010

== ENCOUNTER 2017-06-25 08:47 | Day surgery (SDC) | payer MEDICARE, OTHER ==
[~2017-06-25] VITALS: Ht 188 cm; Wt 81.8 kg
[~2017-06-25 08:47] MED LIST changes: -APIX5TAB PO; +ASPI81CH6 CHEW; +REST15CA PO; -TEMA15CA PO
[2017-06-25] MEDS ORDERED: SODIUM CHLOR 0.9% 1000 ML INJ 1,000 ML IV SCH (09:15)
[2017-06-25] MEDS ORDERED: TAMS0.4C4 (09:39)
[2017-06-25 09:48] LABS: AUTOMATED NEUTROPHIL # 2.5 TH/MM3 (1.8-7.7); BASOPHIL % 0.6 % (0.0-2.0); EOSINOPHIL # 0.1 TH/MM3 (0-0.4); EOSINOPHIL % 3.3 % (0.0-4.0); HEMATOCRIT 42.5 % (39.0-51.0); HEMOGLOBIN 14.7 GM/DL (13.0-17.0); LYMPH % 24.8 % (9.0-44.0); LYMPHOCYTE # 1.1 TH/MM3 (1.0-4.8); MEAN CELL VOLUME 98.1 FL (80.0-100.0); MEAN CORPUSCULAR HGB CONC 34.7 % (32.0-36.0); MEAN PLATELET VOLUME 6.9 FL (7.0-11.0); MONO % 12.7 % (0.0-8.0); MONOCYTE # 0.6 TH/MM3 (0-0.9); NEUT % 58.6 % (16.0-70.0); PLATELET COUNT 132 TH/MM3 (150-450); RED BLOOD COUNT 4.33 MIL/MM3 (4.50-5.90); RED CELL DISTRIBUTION WIDTH 12.9 % (11.6-17.2); WHITE BLOOD COUNT 4.3 TH/MM3 (4.0-11.0)
[2017-06-25 10:04] LABS: INTERNATIONAL NORMALIZED RATIO 1.1 RATIO; PROTHROMBIN TIME - PATIENT 10.9 SEC (9.8-11.6)
[2017-06-25] MEDS ORDERED: MIDAZOLAM HCL 2 MG/2 ML VIAL ONE (10:05)
[2017-06-25] MEDS ORDERED: fentaNYL CITRATE 250 MCG/5 ML AMP ONE (10:05)
[2017-06-25] MEDS ORDERED: LIDOCAINE 1%/EPINEPHrine 1:100,000 SOLN 50 ML VIAL ONE (10:19)
--- NOTE | 2017-06-25 11:19 | PD.RAD ---
Post CT Procedure Prog Note Pre Procedure Diagnosis: (1) Lymphoma (2) Hx of non-Hodgkin's lymphoma Post Procedure Diagnosis: Procedure Date: Jun 25, 2017 Supervising Radiologist: Todd Bobo Proceduralist/Assist: deysi livingston Estimated blood loss: none Anesthesia: Conscious Sedation Plan of Activity Patient to Unit: ROPU Patient Condition: Good See PACS Report for procedural detail/treatment Todd Bobo MD Jun 25, 2017 11:19
[2017-06-25 11:30] VITALS: BP 92/44; PULSE 55; RESP 16; TEMP 97.5; O2SAT 94
[2017-06-25 11:45] VITALS: BP 100/44; PULSE 71; RESP 16; O2SAT 95
[2017-06-25 12:15] VITALS: BP 118/58; PULSE 70; RESP 16; O2SAT 95
[2017-06-25 12:45] VITALS: BP 129/64; PULSE 69; RESP 16; O2SAT 95
--- NOTE | 2017-06-25 14:37 | RADRPT ---
EXAM DATE/TIME: 06/25/2017 10:42 [place] COMPARISON: Comparison to recent PET CT at [facility]. INDICATIONS : Lymphoma. SEDATION TIME: 45 minutes BIOPSY SITE: Left retroperitoneal MEDICATION(S): 1.) 3 mg midazolam (Versed) IV 2.) 150 mcg fentanyl (Sublimaze) IV DEVICE(S): 1.) 18 gauge Chan blunt needle 10cm 2.) 20 gauge Temno core biopsy needle 20cm MEDICAL HISTORY : Lymphoma. Melanoma SURGICAL HISTORY : None. ENCOUNTER: Initial ACUITY: 1 day PAIN SCORE: 0/10 LOCATION: Left flank A total of four core specimen(s) were obtained and sent to the laboratory for pathologic evaluation. PROCEDURE: 1. CT guided lymph node biopsy. 2. Conscious sedation with continuous EKG and oximetry monitoring. Prior to the procedure informed consent was obtained. Any appropriate prior imaging studies were rev iewed. Using automated exposure control and adjustment of the mA and/or kV according to patient size, radiat ion dose was kept as low as reasonably achievable to obtain optimal diagnostic quality images. DICOM format image data is available electronically for review and comparison. The site was prepped in a sterile fashion. Full sterile technique was used, including cap, mask, enzo rile gloves and gown and a large sterile sheet. Hand hygiene and 2% chlorhexidine and/or betadine/al cohol prep was utilized per protocol for cutaneous antisepsis. The skin and subcutaneous tissues wer e infiltrated with local anesthetic solution. With CT guidance the previously identified target was localized. Biopsy was performed using the presc ribed needle as above. Adequate hemostasis was obtained with compression at the puncture site. Follow-up CT scan reveals no hemorrhage. The patient tolerated the procedure well and there were no complications. The patient was returned to the Radiology Outpatient Unit in stable condition. CONCLUSION: Uncomplicated CT guided biopsy of the lymphadenopathy in the left para-aortic region which was hyperm etabolically active on recent PET scan. Todd Bobo MD on June 25, 2017 at 14:33 Board Certified Radiologist. This report was verified electronically.
== END 2017-06-25 13:30 | disposition home or self-care (01) ==
LOC: HRAD 08:47 → HRIP 08:50 → HRAD 13:30
PROVIDERS: ATTEND Internal Medicine Hematology & Oncology
DX: C85.90 Non-Hodgkin lymphoma, unspecified, unspecified site (principal); Z85.820 Personal history of malignant melanoma of skin; Z79.899 Other long term (current) drug therapy; Z79.82 Long term (current) use of aspirin
CPT/HCPCS: 38505; 77012; 85025; 85610; 85730; 88184; 88185; 88305; 99152; 99153; J2250; J3010

== ENCOUNTER 2017-07-09 07:34 | Observation (INO) | payer MEDICARE, OTHER ==
[~2017-07-09] VITALS: Ht 185.4 cm; Wt 85.8 kg
[~2017-07-09 07:34] MED LIST changes: -DETR4CAP PO; -FINA5TAB2 PO; -IBRU1CAP PO; +METO-484 PO; -METO25TA3 PO; +TAMS0.4C4
[2017-07-09] MEDS ORDERED: ceFAZolin 2 GM PREMIX 50 ML IV SCH (08:00)
[2017-07-09] MEDS ORDERED: POVIDONE IODINE 5% (ANTISEPSIS KIT) 4 APPLICATIONS EACH NARE PRN (09:00)
[2017-07-09] MEDS ORDERED: LACTATED RINGER'S 1000 ML IV PRN (09:00)
[2017-07-09] MEDS ORDERED: METOPROLOL TARTRATE 25 MG TAB PO PRN (09:00)
[2017-07-09] MEDS ORDERED: CHLORHEXIDINE GLUCONATE 2 % 1 PACK (2 CLOTHS) TOPICAL PRN (09:00)
[2017-07-09] MEDS ORDERED: SODIUM CHLORID 0.9% 500 ML IV PRN (09:00)
[2017-07-09 09:12] LABS: AUTOMATED NEUTROPHIL # 2.4 TH/MM3 (1.8-7.7); BASOPHIL % 0.9 % (0.0-2.0); EOSINOPHIL # 0.2 TH/MM3 (0-0.4); EOSINOPHIL % 4.1 % (0.0-4.0); HEMATOCRIT 44.5 % (39.0-51.0); HEMOGLOBIN 14.9 GM/DL (13.0-17.0); LYMPH % 24.6 % (9.0-44.0); LYMPHOCYTE # 1.1 TH/MM3 (1.0-4.8); MEAN CELL VOLUME 98.5 FL (80.0-100.0); MEAN CORPUSCULAR HEMOGLOBIN 32.9 PG (27.0-34.0); MEAN CORPUSCULAR HGB CONC 33.4 % (32.0-36.0); MEAN PLATELET VOLUME 6.7 FL (7.0-11.0); MONO % 13.1 % (0.0-8.0); MONOCYTE # 0.6 TH/MM3 (0-0.9); NEUT % 57.3 % (16.0-70.0); PLATELET COUNT 139 TH/MM3 (150-450); RED BLOOD COUNT 4.52 MIL/MM3 (4.50-5.90); RED CELL DISTRIBUTION WIDTH 12.5 % (11.6-17.2); WHITE BLOOD COUNT 4.3 TH/MM3 (4.0-11.0)
[2017-07-09 09:52] LABS: CALCIUM 8.6 MG/DL (8.5-10.1)
[2017-07-09 09:53] LABS: BICARBONATE 26.4 MEQ/L (21.0-32.0)
[2017-07-09 09:56] LABS: CREATININE 0.86 MG/DL (0.60-1.30)
[2017-07-09] MEDS ORDERED: BUPIVACAINE/EPINEPHRINE 0.5% PF 30 ML VIAL ONE ×2 (10:49)
[2017-07-09 12:35] VITALS: PULSE 64
[2017-07-09] MEDS ORDERED: MORPHINE SULFATE 2 MG/ML SYRINGE ONE ×2 (12:47→13:01)
[2017-07-09] MEDS: SODIUM CHLOR 0.9% 1000 ML INJ 1,000 ML IV SCH ×2 (12:56→20:18)
[2017-07-09] MEDS ORDERED: ACETAMINOPHEN 325 MG TAB PO PRN (13:00)
[2017-07-09] MEDS ORDERED: MORPHINE SULFATE 4 MG/ML INJ IV PUSH PRN (13:00)
[2017-07-09] MEDS ORDERED: IBUPROFEN 600 MG TAB PO PRN (13:00)
[2017-07-09] MEDS ORDERED: SODIUM CHLORIDE 0.9% FLUSH 10 ML FLUSH IV FLUSH SCH (13:00)
[2017-07-09] MEDS ORDERED: SODIUM CHLORIDE 0.9% FLUSH 10 ML FLUSH IV FLUSH PRN (13:00)
[2017-07-09] MEDS ORDERED: Post-op Orders (for Pharmacy) XX ONE (13:00)
[2017-07-09] MEDS ORDERED: TEMAZEPAM 15 MG CAP PO PRN (13:00)
[2017-07-09] MEDS ORDERED: ACETAMINOPHEN/HYDROcodone 325 MG/5 MG TAB PO PRN (13:00)
--- NOTE | 2017-07-09 13:58 | MP ---
cc: Rusty Leal MD DATE OF OPERATION: 07/09/2017 DATE OF PROCEDURE: 07/09/2017. PREOPERATIVE DIAGNOSES: 1. 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 2. 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 3. Recurrent erythematous lesion, left shoulder, uncertain behavior. POSTOPERATIVE DIAGNOSES: 1. Regional recurrence of Madrid cell carcinoma. PET-avid lesion, left axilla. 2. 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 3. Recurrent erythematous lesion, left shoulder, uncertain behavior. PROCEDURE: 1. Left axillary lymph node dissection levels 1, 2, and 3. 2. Excisional biopsy of left shoulder erythematous lesion, simple closure, 5 x 1.5 cm. 3. Excisional biopsy of a left lateral chest wall subcutaneous nodule without closure. 4. Wide excision of recurrent Madrid cell carcinoma of the left chest wall, in-transit type disease. ATTENDING SURGEON: MD Elvis CAR SALTER: Staff. ANESTHESIA: General and local anesthetic at all surgery sites. BLOOD LOSS: Less than 25 mL COMPLICATIONS: None. FINDINGS: Good stimulation of thoracodorsal and long thoracic nerves at the end of the procedure. All margins of resection grossly normal. 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 The patient underwent wide excision and radiation as well as radiation to his axilla for a lymph node metastasis. Unfortunately, the patient developed multiple in-transit metastases of the left chest wall and recurrence in the left axilla. This is a biopsy-proven recurrence on the chest wall and the left axilla recurrence was diagnosed via PET scan and physical exam. After a long discussion with the patient about the disease and evaluation in my office, he was found to have another nodule, likely in-transit disease in the left chest wall. I did recommend we perform the biopsies and wide excision and treatment of his known in-transit disease while under anesthesia for a left axillary dissection for local regional control of the Anant cell carcinoma. Of note, the patient had no distant metastatic disease on his PET scan. The patient does have a history of lymphoma which is stable at this time. Again, the risks, benefits and alternatives were discussed, the patient agreed undergo the operation. PROCEDURE: After informed consent was obtained, the patient was taken to the operating room and placed in the supine position, placed under general anesthesia with LMA airway. The 5 mm x 1.5 cm excision was made on the left shoulder to remove the cutaneous nodule of uncertain behavior. Local anesthetic was used at this site, as well as all incision sites prior to incision. Excellent hemostasis with the Bovie electrocautery and this was passed off unoriented for permanent pathology. The skin was closed with 3-0 Vicryl and Dermabond. This was a simple closure. We then turned our attention towards the patient's left subcutaneous nodule along the chest wall. This was adjacent to the patient's previous biopsy site and both of these lesions likely represented in-transit disease. We made a small elliptical incision over this area and using Bovie electrocautery completely excised it grossly and passed this off for permanent processing. This was in the subcutaneous tissue, did not go down to the pectoralis fascia and was not attached to the skin grossly. This was highly suspicious for in-transit disease of Anant cell carcinoma. At this time, the patient had a previous excisional biopsy of an in-transit disease performed by his fiber optics technician and required further excision as this had positive margins. I was able to perform a 4 cm x 10 cm elliptical wide excision type excision to incorporate the patient's biopsy site with previous positive margins, as well as to incorporate the biopsy of the subcutaneous nodule to facilitate closure, closing the biopsy of the subcutaneous nodule in the same incision due to their location. We used a 15 blade scalpel, followed by Bovie electrocautery. This was carried down to the pectoralis fascia and an area of the pectoralis fascia underneath both of these biopsy sites were excised intact and the lesion. Marked this with a stitch at 12 o'clock superior and passed this off for permanent section. All margins were grossly negative. Again, this wide excision did incorporate the old biopsy site that was Madrid cell carcinoma with positive margins, as well as the new biopsy site that was performed by myself, which was very highly suspicious for in-transit Madrid cell carcinoma. Once we closed the pectoralis fascia, after undermining the fascia extensively, we closed the pectoralis fascia with interrupted 0 Vicryl sutures. We closed the skin with multiple deep dermal 0 Vicryl sutures, followed by 4-0 Monocryl and Dermabond. This closed with minimal tension. We then turned our attention towards the axillary dissection. A curvilinear incision was made below the axillary hairline in standard fashion after instillation of local anesthetic. Bovie electrocautery was used to dissect subcutaneous tissue and skin flaps were made distally and proximally under the axillary hair. We brought this dissection with the Bovie electrocautery down to the lateral edge of the pectoralis muscle as well as the latissimus muscle and posterior. We continued dissection majority with the Bovie electrocautery and towards the level 3. We did tie off the branches of the axillary vein extending into the axillary contents with 3-0 Vicryl sutures. We then swept down multiple nodes that seemed to be benign and the seema tissue out from the level 3 using 3-0 ties and Bovie electrocautery. There was a palpable mass consistent with the regional or seema recurrence of Anant cell in the inferior portion of the specimen and this was grossly negative and we stayed widely outside of this lesion. This lesion was also not involving any muscle structures and was retained within the axilla. The contents of the axilla were passed off as levels 1, 2, and 3. We stimulated the thoracodorsal and long thoracic nerves with a good result. They were seen to be intact and had excellent hemostasis. We irrigated out the axilla and all succinate was clear. We closed the axillary incision with 3-0 Vicryl sutures followed by 4-0 Monocryl and Dermabond after we had placed a 10-Greek round drain. The drain was sutured in place with 3-0 nylon suture, placed to bulb suction. At this point in time, the patient was discontinued from anesthesia and taken to the PACU in stable condition. The patient tolerated the procedure well. No apparent complications. All counts were correct. I was present and scrubbed for the entire procedure. MD LELO Mckee/SARAH , 01:18 PM , 01:58 PM
[2017-07-09 16:00] VITALS: BP 126/62; PULSE 75; RESP 14; TEMP 96.1; O2SAT 92
[2017-07-09 20:00] VITALS: BP 108/56; PULSE 82; RESP 20; TEMP 97.5; O2SAT 93
[2017-07-09] MEDS: ACETAMINOPHEN/HYDROcodone 325 MG/5 MG TAB PO PRN (20:53)
[2017-07-09] MEDS ORDERED: TAMSULOSIN HCL 0.4 MG CAP PO SCH (21:00)
[2017-07-10] VITALS: BP 97/56; PULSE 65; RESP 20; TEMP 97.5; O2SAT 93
[2017-07-10] MEDS: ACETAMINOPHEN/HYDROcodone 325 MG/5 MG TAB PO PRN (02:52)
[2017-07-10 08:00] VITALS: BP 118/56; PULSE 65; RESP 16; TEMP 98.6; O2SAT 91
[2017-07-10] MEDS ORDERED: METOPROLOL TARTRATE 25 MG TAB PO SCH (09:00)
[2017-07-10] MEDS ORDERED: HYDROCHLOROTHIAZIDE 12.5 MG CAP PO SCH (09:00)
--- NOTE | 2017-07-10 10:31 | HHI.FF ---
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 My clinical findings support the need for the requested home health care services because: I am filling out this form to expedite the patient discharge Dr. Leal made arrangements for the patient to have home health services for his discharge. For some reason the computer lost this information The patient is ready for discharge and I am filling out this form to expedite his discharge his physician is not available this weekend Limited ability to care for self Infection w/ risk of complications I certify that my clinical findings support that this patient is homebound because: Post-op weakness Camilo Cordon MD Jul 10, 2017 10:31
== END 2017-07-10 10:33 | disposition home or self-care (01) ==
LOC: PHSDC 07:34 → PH3B 13:56
PROVIDERS: ADMIT Surgery; ATTEND Surgery
DX: C4A.59 Merkel cell carcinoma of other part of trunk (principal); C77.9 Secondary and unspecified malignant neoplasm of lymph node, unspecified; L98.8 Other specified disorders of the skin and subcutaneous tissue; I48.91 Unspecified atrial fibrillation; Z79.82 Long term (current) use of aspirin; Z85.72 Personal history of non-Hodgkin lymphomas
CPT/HCPCS: 00400; 11100; 11101; 11606; 36415; 38740; 80048; 85025; 88305; 88307; G0378; J0690; J2270; J3010; J7120